=== PATIENT | male | born 1990 | race Two or more races ===

== ENCOUNTER 2020-12-10 16:38 | Inpatient (IN) | payer OTHER ==
[~2020-12-10] VITALS: Ht 175.3 cm; Wt 104.3 kg
[2020-12-16] MEDS ORDERED: B Complex CAPSULE PO (13:22)
[2020-12-16] MEDS ORDERED: Neurin-Sl Tablet Sl SL (13:22)
[2020-12-16] MEDS ORDERED: PROTONIX40 MG PO (13:22)
[2020-12-16] MEDS ORDERED: INTESTINEX680 M1 PO (13:22)
== END 2020-12-16 14:09 | disposition home or self-care (01) | DRG 866 ==
LOC: ER 16:38 → MEDJ 12-11 13:43
PROVIDERS: ADMIT Internal Medicine; ATTEND Internal Medicine
PROC: 8E0ZXY6 Isolation (ICD-10-PCS; principal; 2020-12-11)
DX: A90 Dengue fever [classical dengue] (principal); D69.49 Other primary thrombocytopenia; Z20.822 Contact with and (suspected) exposure to COVID-19; E66.8 Other obesity

== ENCOUNTER → 2023-08-05 | Emergency (ER) | payer OTHER ==
[~2023-08-05] VITALS: Ht 175.3 cm; Wt 113.4 kg
[~2023-08-05] MED LIST: B Complex CAPSULE PO; INTESTINEX680 M1 PO; Neurin-Sl Tablet Sl SL; PROTONIX40 MG PO
== END | disposition home or self-care (01) ==
LOC: ER
DX: H53.8 Other visual disturbances (principal)